=== PATIENT | female | born 1940 | race Caucasian/White ===

== ENCOUNTER 2018-02-20 19:46 | Emergency (ER) | payer OTHER ==
[2018-02-20] MEDS: NAPROXEN 500 MG TAB PO (22:57)
== END 2018-02-21 00:05 | disposition home or self-care (01) ==
LOC: FTE 02-21 00:05
DX: M25.461 Effusion, right knee (principal); Z79.82 Long term (current) use of aspirin
CPT/HCPCS: 73562; 93971; 99283-25

== ENCOUNTER 2018-06-13 14:53 | Inpatient (IN) | payer OTHER ==
[2018-06-13 16:04] LABS: ADD MAN DIFF? NO
[2018-06-13 16:05] LABS: WHITE BLOOD COUNT 18.7 10^3/ul (4.8-10.8)
[2018-06-13 16:05] LABS: BASOPHIL # 0.1 10^3/ul (0.0-0.1); BASOPHILS % 0.3 % (0.0-2.0); EOSINOPHILS % 0.1 % (0.0-7.0); HEMATOCRIT 44.8 % (37.0-47.0); HEMOGLOBIN 15.2 g/dl (12.0-16.0); LYMPHOCYTES # 1.7 10^3/ul (0.8-2.9); LYMPHOCYTES % 8.9 % (15.0-51.0); MEAN CORPUSCULAR HEMOGLOBIN 32.3 pg (29.0-33.0); MEAN CORPUSCULAR HGB CONC 33.9 g/dl (32.0-37.0); MEAN CORPUSCULAR VOLUME 95.3 fl (82.0-101.0); MEAN PLATELET VOLUME 12.5 fl (7.4-10.4); MONOCYTE # 1.4 10^3/ul (0.3-0.9); MONOCYTES % 7.7 % (0.0-11.0); NEUTROPHIL # 15.4 10^3/ul (1.6-7.5); NEUTROPHILS % 82.4 % (39.0-77.0); PLATELET COUNT 199 10^3/UL (140-415); RED CELL DISTRIBUTION WIDTH 13.4 % (11.5-14.5)
[2018-06-13 16:10] LABS: ADD UMIC YES; UR ASCORBIC ACID NEGATIVE (NEGATIVE); UR BILIRUBIN (Dip) NEGATIVE (NEGATIVE); UR BLOOD (Dip) 1+ mg/dL (NEGATIVE); UR CLARITY CLEAR (CLEAR); UR COLOR YELLOW (YELLOW); UR GLUCOSE (Dip) NEGATIVE (NEGATIVE); UR KETONES (Dip) NEGATIVE (NEGATIVE); UR LEUKOCYTE ESTERASE (Dip) NEGATIVE Leu/ul (NEGATIVE); UR NITRITE (Dip) NEGATIVE (NEGATIVE); UR RBC 1 /HPF (0-5); UR SPECIFIC GRAVITY (Dip) 1.008 (1.003-1.030); UR TOTAL PROTEIN (Dip) NEGATIVE (NEGATIVE); UR UROBILINOGEN (Dip) NEGATIVE (NEGATIVE); UR WBC 2 /HPF (0-5)
[2018-06-13 16:30] LABS: ALANINE AMINOTRANSFERASE 18 IU/L (13-69); ALBUMIN 4.2 g/dl (3.3-4.9); ALKALINE PHOSPHATASE 93 IU/L (42-121); ANION GAP 12 (5-13); ASPARTATE AMINO TRANSFERASE 29 IU/L (15-46); BILIRUBIN,INDIRECT 0.7 mg/dl (0-1.1); BILIRUBIN,TOTAL 0.7 mg/dl (0.2-1.3); BLOOD UREA NITROGEN 13 mg/dl (7-20); CALCIUM 9.6 mg/dl (8.4-10.2); CARBON DIOXIDE 24 mmol/L (21-31); CHLORIDE 102 mmol/L (97-110); CREATININE 0.62 mg/dl (0.44-1.00); GLUCOSE 122 mg/dl (70-220); LIPASE 23 U/L (23-300); POTASSIUM 4.1 mmol/L (3.5-5.1); SODIUM 138 mmol/L (135-144); TOTAL PROTEIN 8.4 g/dl (6.1-8.1)
[2018-06-13] MEDS: SOD CHLORIDE 0.9% 100 ML (18:25)
[2018-06-13] MEDS: IOHEXOL 300MG/ML 150 ML BTL (18:25)
[2018-06-13] MEDS ORDERED: ONDANSETRON 4 MG INJ IV (19:30)
[2018-06-13] MEDS ORDERED: PIPER-TAZO 3.375 GM IV (PMX) 100 ML IVPB (19:30)
[2018-06-13] MEDS ORDERED: ACETAMINOPHEN 325 MG TAB PO (19:30)
[2018-06-13] MEDS ORDERED: NACL 0.9% 3 ML SYG IV (20:00)
[2018-06-13 20:14] LABS: INR 1.06; PROTIME 13.9 Sec (11.9-14.9); PT RATIO 1.1
[2018-06-13] MEDS: PIPER-TAZO 2.25 GM (PMX) 50 ML IVPB (20:17)
[2018-06-13] MEDS: DEXTROSE 5%-0.45% NACL 1,000 ML IV (20:20)
[2018-06-13] MEDS: morphine 2 MG INJ IV (22:03)
[2018-06-14] MEDS: ONDANSETRON 4 MG INJ IV (01:43)
[2018-06-14] MEDS: PIPER-TAZO 2.25 GM (PMX) 50 ML IVPB ×2 (01:43→05:55)
[2018-06-14] MEDS: SOD CHLORIDE 0.9% 1,000 ML IV ×6 (02:04→17:02)
[2018-06-14 03:02] LABS: LACTIC ACID 4.6 mmol/L (0.5-2.0)
[2018-06-14] MEDS: PANTOPRAZOLE 40 MG INJ IV (05:55)
[2018-06-14 06:18] LABS: WHITE BLOOD COUNT 20.4 10^3/ul (4.8-10.8)
[2018-06-14 06:18] LABS: ABNORMAL IP MESSAGE 1; HEMATOCRIT 41.1 % (37.0-47.0); HEMOGLOBIN 13.5 g/dl (12.0-16.0); MEAN CORPUSCULAR HEMOGLOBIN 32.6 pg (29.0-33.0); MEAN CORPUSCULAR HGB CONC 32.8 g/dl (32.0-37.0); MEAN CORPUSCULAR VOLUME 99.3 fl (82.0-101.0); MEAN PLATELET VOLUME 13.3 fl (7.4-10.4); PLATELET COUNT 135 10^3/UL (140-415); RED BLOOD COUNT 4.14 10^6/ul (4.20-5.40); RED CELL DISTRIBUTION WIDTH 13.9 % (11.5-14.5)
[2018-06-14 06:33] LABS: ADD MAN DIFF? YES; POSITIVE DIFF @See below
[2018-06-14 06:35] LABS: HEMOGLOBIN A1C 5.8 % (0-5.9)
[2018-06-14 06:38] LABS: ALANINE AMINOTRANSFERASE 62 IU/L (13-69); ALBUMIN 3.1 g/dl (3.3-4.9); ALBUMIN/GLOBULIN RATIO 0.88; ALKALINE PHOSPHATASE 214 IU/L (42-121); ANION GAP 12 (5-13); ASPARTATE AMINO TRANSFERASE 130 IU/L (15-46); BILIRUBIN,INDIRECT 0.9 mg/dl (0-1.1); BILIRUBIN,TOTAL 2.6 mg/dl (0.2-1.3); BLOOD UREA NITROGEN 15 mg/dl (7-20); CALCIUM 8.4 mg/dl (8.4-10.2); CARBON DIOXIDE 19 mmol/L (21-31); CHLORIDE 108 mmol/L (97-110); CHOL/HDL RATIO 4.2 RATIO; CHOLESTEROL 116 mg/dl (100-200); CREATININE 1.27 mg/dl (0.44-1.00); GLUCOSE 89 mg/dl (70-220); HDL CHOLESTEROL 27 mg/dl (33-92); LDL CHOLESTEROL,CALCULATED 67 mg/dl; MAGNESIUM 1.7 mg/dl (1.7-2.5); POTASSIUM 3.6 mmol/L (3.5-5.1); SODIUM 139 mmol/L (135-144); TOTAL PROTEIN 6.6 g/dl (6.1-8.1); TRIGLYCERIDES 110 mg/dl (0-149)
[2018-06-14] MEDS: NORepinephrine 8MG/250 ML (PMX 250 ML IV (07:02)
[2018-06-14 09:50] LABS: ANISOCYTOSIS 1+ (0-0); BAND NEUTROPHILS #M 6.3 10^3/ul (0.0-0.6); BAND NEUTROPHILS % (M) 31 % (0-4); GIANT THROMBO% (M) 7 % (0-0); LYMPHOCYTES #M 0.4 10^3/ul (0.8-2.9); LYMPHOCYTES % (M) 2 % (15-51); MONOCYTE #M 0.6 10^3/ul (0.3-0.9); MONOCYTES % (M) 3 % (0-11); PLATELET ESTIMATE DECREASED; POIKILOCYTOSIS 1+ (0-0); POLYCHROMASIA 1+ (0-0); SEG NEUT #M 14.3 10^3/ul (1.6-7.5); SEGMENTED NEUTROPHILS (M) % 64 % (39-77); SMUDGE%M 3 % (0-0)
[2018-06-14] MEDS: LIDOCAINE 1% (MPF) 5 ML VIAL SC (10:05)
[2018-06-14] MEDS: PIPER-TAZO 3.375 GM IV (PMX) 100 ML IVPB ×2 (13:16→21:40)
[2018-06-14] MEDS: LIDOCAINE 2% (SDV) 5 ML INJ (15:00)
[2018-06-14] MEDS: FENTAnyl 50 MCG/ML VIAL (15:00)
[2018-06-14] MEDS: ONDANSETRON 4 MG INJ (15:30)
[2018-06-15] MEDS: SOD CHLORIDE 0.9% 1,000 ML IV ×3 (01:46→10:07)
[2018-06-15] MEDS: PIPER-TAZO 3.375 GM IV (PMX) 100 ML IVPB (05:41)
[2018-06-15 05:52] LABS: WHITE BLOOD COUNT 28.5 10^3/ul (4.8-10.8)
[2018-06-15 05:52] LABS: ABNORMAL IP MESSAGE 1; HEMATOCRIT 38.9 % (37.0-47.0); HEMOGLOBIN 12.4 g/dl (12.0-16.0); MEAN CORPUSCULAR HEMOGLOBIN 32.2 pg (29.0-33.0); MEAN CORPUSCULAR HGB CONC 31.9 g/dl (32.0-37.0); MEAN PLATELET VOLUME 13.9 fl (7.4-10.4); PLATELET COUNT 134 10^3/UL (140-415); RED BLOOD COUNT 3.85 10^6/ul (4.20-5.40); RED CELL DISTRIBUTION WIDTH 14.8 % (11.5-14.5)
[2018-06-15 05:56] LABS: LACTIC ACID 1.4 mmol/L (0.5-2.0)
[2018-06-15 05:57] LABS: ADD MAN DIFF? YES; POSITIVE DIFF @See below
[2018-06-15] MEDS: NORepinephrine 8MG/250 ML (PMX 250 ML IV (05:57)
[2018-06-15 06:25] LABS: PHOSPHORUS 2.9 mg/dl (2.5-4.9)
[2018-06-15 06:25] LABS: MAGNESIUM 1.9 mg/dl (1.7-2.5)
[2018-06-15] MEDS: SOD CHLORIDE 0.9% 500 ML IV (06:34)
[2018-06-15 06:38] LABS: ALANINE AMINOTRANSFERASE 81 IU/L (13-69); ALBUMIN 2.7 g/dl (3.3-4.9); ALBUMIN/GLOBULIN RATIO 0.93; ALKALINE PHOSPHATASE 155 IU/L (42-121); ANION GAP 9 (5-13); ASPARTATE AMINO TRANSFERASE 95 IU/L (15-46); BILIRUBIN,INDIRECT 0.2 mg/dl (0-1.1); BILIRUBIN,TOTAL 0.4 mg/dl (0.2-1.3); BLOOD UREA NITROGEN 22 mg/dl (7-20); CALCIUM 7.4 mg/dl (8.4-10.2); CARBON DIOXIDE 18 mmol/L (21-31); CHLORIDE 113 mmol/L (97-110); CREATININE 0.98 mg/dl (0.44-1.00); GLUCOSE 87 mg/dl (70-220); POTASSIUM 4.1 mmol/L (3.5-5.1); SODIUM 140 mmol/L (135-144); TOTAL PROTEIN 5.6 g/dl (6.1-8.1)
[2018-06-15 07:28] LABS: ANISOCYTOSIS 1+ (0-0); BAND NEUTROPHILS #M 9.4 10^3/ul (0.0-0.6); BAND NEUTROPHILS % (M) 33 % (0-4); BASOPHIL #M 0.2 10^3/ul (0.0-0.0); BASOPHILS % (M) 1 % (0-2); EOSINOPHILS % (M) 1 % (0-7); MONOCYTE #M 0.5 10^3/ul (0.3-0.9); MONOCYTES % (M) 2 % (0-11); PLATELET ESTIMATE DECREASED; POLYCHROMASIA 1+ (0-0); SEG NEUT #M 20.6 10^3/ul (1.6-7.5); SEGMENTED NEUTROPHILS (M) % 63 % (39-77); SMUDGE%M 2 % (0-0)
[2018-06-15] MEDS: ONDANSETRON 4 MG INJ IV ×2 (09:48→18:06)
[2018-06-15] MEDS ORDERED: VANCOMYCIN IV PER PHARMACY XX (10:00)
[2018-06-15] MEDS: MEROPENEM 1 GM/50ML(PMX) 50 ML IVPB ×2 (10:03→21:43)
[2018-06-15] MEDS: VANCOMYCIN HCL 1.5 GM in SOD CHLORIDE 0.9% 250 ML IVPB (11:01)
[2018-06-15 11:13] LABS: LACTIC ACID 1.1 mmol/L (0.5-2.0)
[2018-06-15] MEDS: METOPROLOL (XL) 25 MG TAB PO (18:44)
[2018-06-16] MEDS: SOD CHLORIDE 0.9% 1,000 ML IV (04:21)
[2018-06-16 05:04] LABS: ADD MAN DIFF? NO
[2018-06-16 05:17] LABS: ABNORMAL IP MESSAGE 1; BASOPHIL # 0.1 10^3/ul (0.0-0.1); BASOPHILS % 0.3 % (0.0-2.0); EOSINOPHILS # 0.2 10^3/ul (0.0-0.5); EOSINOPHILS % 1.2 % (0.0-7.0); HEMATOCRIT 38.1 % (37.0-47.0); HEMOGLOBIN 12.4 g/dl (12.0-16.0); LYMPHOCYTES # 1.6 10^3/ul (0.8-2.9); LYMPHOCYTES % 8.2 % (15.0-51.0); MEAN CORPUSCULAR HEMOGLOBIN 32.6 pg (29.0-33.0); MEAN CORPUSCULAR HGB CONC 32.5 g/dl (32.0-37.0); MEAN CORPUSCULAR VOLUME 100.3 fl (82.0-101.0); MEAN PLATELET VOLUME 13.7 fl (7.4-10.4); MONOCYTE # 0.9 10^3/ul (0.3-0.9); MONOCYTES % 4.5 % (0.0-11.0); NEUTROPHIL # 16.4 10^3/ul (1.6-7.5); NEUTROPHILS % 85.4 % (39.0-77.0); PLATELET COUNT 120 10^3/UL (140-415)
[2018-06-16 05:17] LABS: WHITE BLOOD COUNT 19.2 10^3/ul (4.8-10.8)
[2018-06-16 05:21] LABS: POSITIVE DIFF @See below
[2018-06-16 05:44] LABS: LACTIC ACID 1.3 mmol/L (0.5-2.0)
[2018-06-16 05:51] LABS: ANION GAP 10 (5-13); BLOOD UREA NITROGEN 18 mg/dl (7-20); CALCIUM 8.4 mg/dl (8.4-10.2); CARBON DIOXIDE 23 mmol/L (21-31); CHLORIDE 109 mmol/L (97-110); GLUCOSE 85 mg/dl (70-220); MAGNESIUM 2.2 mg/dl (1.7-2.5); PHOSPHORUS 2.1 mg/dl (2.5-4.9); POTASSIUM 3.9 mmol/L (3.5-5.1); SODIUM 142 mmol/L (135-144)
[2018-06-16] MEDS: MEROPENEM 1 GM/50ML(PMX) 50 ML IVPB ×2 (08:24→20:20)
[2018-06-16] MEDS: NEUTRA-PHOS 250 MG PACKET PO (08:24)
[2018-06-16] MEDS ORDERED: VANCOMYCIN HCL 1.25 GM in SOD CHLORIDE 0.9% 250 ML IVPB (11:00)
[2018-06-16] MEDS: ONDANSETRON 4 MG INJ IV (14:15)
[2018-06-16 23:03] LABS: ADD UMIC YES; UR ASCORBIC ACID NEGATIVE (NEGATIVE); UR BILIRUBIN (Dip) NEGATIVE (NEGATIVE); UR BLOOD (Dip) 1+ mg/dL (NEGATIVE); UR CLARITY CLEAR (CLEAR); UR COLOR YELLOW (YELLOW); UR GLUCOSE (Dip) NEGATIVE (NEGATIVE); UR KETONES (Dip) NEGATIVE (NEGATIVE); UR LEUKOCYTE ESTERASE (Dip) NEGATIVE Leu/ul (NEGATIVE); UR MUCUS FEW /HPF (NONE SEEN); UR NITRITE (Dip) NEGATIVE (NEGATIVE); UR RBC 4 /HPF (0-5); UR SPECIFIC GRAVITY (Dip) 1.013 (1.003-1.030); UR TOTAL PROTEIN (Dip) NEGATIVE (NEGATIVE); UR UROBILINOGEN (Dip) 1+ mg/dL (NEGATIVE); UR WBC 1 /HPF (0-5)
[2018-06-16 23:28] LABS: CREATININE,URINE RANDOM 36.53 mg/dl (20-320)
[2018-06-16 23:28] LABS: SODIUM,URINE RANDOM 155 mmol/L (30-90)
[2018-06-17] MEDS: ACETAMINOPHEN 325 MG TAB PO (06:29)
[2018-06-17] MEDS: ONDANSETRON 4 MG INJ IV (06:29)
[2018-06-17 06:50] LABS: ADD MAN DIFF? NO
[2018-06-17 06:56] LABS: ABNORMAL IP MESSAGE 1; BASOPHILS % 0.2 % (0.0-2.0); EOSINOPHILS # 0.3 10^3/ul (0.0-0.5); HEMATOCRIT 39.7 % (37.0-47.0); HEMOGLOBIN 13.2 g/dl (12.0-16.0); LYMPHOCYTES # 2.5 10^3/ul (0.8-2.9); LYMPHOCYTES % 19.4 % (15.0-51.0); MEAN CORPUSCULAR HEMOGLOBIN 32.3 pg (29.0-33.0); MEAN CORPUSCULAR HGB CONC 33.2 g/dl (32.0-37.0); MEAN CORPUSCULAR VOLUME 97.1 fl (82.0-101.0); MEAN PLATELET VOLUME 13.1 fl (7.4-10.4); MONOCYTES % 7.9 % (0.0-11.0); NEUTROPHIL # 8.9 10^3/ul (1.6-7.5); NEUTROPHILS % 69.8 % (39.0-77.0); PLATELET COUNT 116 10^3/UL (140-415); RED BLOOD COUNT 4.09 10^6/ul (4.20-5.40); RED CELL DISTRIBUTION WIDTH 14.2 % (11.5-14.5)
[2018-06-17 06:56] LABS: WHITE BLOOD COUNT 12.8 10^3/ul (4.8-10.8)
[2018-06-17 07:07] LABS: POSITIVE DIFF @See below
[2018-06-17 07:28] LABS: ANION GAP 9 (5-13); BLOOD UREA NITROGEN 11 mg/dl (7-20); CALCIUM 8.8 mg/dl (8.4-10.2); CARBON DIOXIDE 29 mmol/L (21-31); CHLORIDE 103 mmol/L (97-110); CREATININE 0.64 mg/dl (0.44-1.00); GLUCOSE 93 mg/dl (70-220); MAGNESIUM 1.7 mg/dl (1.7-2.5); PHOSPHORUS 2.1 mg/dl (2.5-4.9); POTASSIUM 3.6 mmol/L (3.5-5.1); SODIUM 141 mmol/L (135-144)
[2018-06-17] MEDS: MEROPENEM 1 GM/50ML(PMX) 50 ML IVPB ×2 (08:36→20:29)
[2018-06-17] MEDS: hydrALAzine 20 MG INJ IV (21:13)
[2018-06-18] MEDS: MEROPENEM 1 GM/50ML(PMX) 50 ML IVPB (08:50)
[2018-06-18] MEDS: CEFTRIAXONE 2 GM/50 ML (PMX) 50 ML IVPB (13:33)
[2018-06-18 15:21] LABS: CREATININE, RANDOM URINE 42 mg/dL (20-275); MICROALBUMIN/CREATININE RATIO 24 (<30)
[2018-06-19 05:44] LABS: ADD MAN DIFF? NO
[2018-06-19 06:00] LABS: WHITE BLOOD COUNT 11.4 10^3/ul (4.8-10.8)
[2018-06-19 06:00] LABS: BASOPHILS % 0.4 % (0.0-2.0); EOSINOPHILS # 0.2 10^3/ul (0.0-0.5); EOSINOPHILS % 1.6 % (0.0-7.0); HEMATOCRIT 40.1 % (37.0-47.0); HEMOGLOBIN 13.6 g/dl (12.0-16.0); LYMPHOCYTES # 3.2 10^3/ul (0.8-2.9); LYMPHOCYTES % 28.2 % (15.0-51.0); MEAN CORPUSCULAR HEMOGLOBIN 32.5 pg (29.0-33.0); MEAN CORPUSCULAR HGB CONC 33.9 g/dl (32.0-37.0); MEAN CORPUSCULAR VOLUME 95.7 fl (82.0-101.0); MEAN PLATELET VOLUME 12.9 fl (7.4-10.4); MONOCYTE # 1.1 10^3/ul (0.3-0.9); NEUTROPHIL # 6.7 10^3/ul (1.6-7.5); NEUTROPHILS % 58.7 % (39.0-77.0); PLATELET COUNT 164 10^3/UL (140-415); RED BLOOD COUNT 4.19 10^6/ul (4.20-5.40); RED CELL DISTRIBUTION WIDTH 13.5 % (11.5-14.5)
[2018-06-19 06:35] LABS: MAGNESIUM 1.6 mg/dl (1.7-2.5)
[2018-06-19 06:35] LABS: PHOSPHORUS 3.5 mg/dl (2.5-4.9)
[2018-06-19 06:41] LABS: ALANINE AMINOTRANSFERASE 70 IU/L (13-69); ALBUMIN 3.1 g/dl (3.3-4.9); ALKALINE PHOSPHATASE 145 IU/L (42-121); ANION GAP 5 (5-13); ASPARTATE AMINO TRANSFERASE 66 IU/L (15-46); BILIRUBIN,INDIRECT 0.3 mg/dl (0-1.1); BILIRUBIN,TOTAL 0.3 mg/dl (0.2-1.3); BLOOD UREA NITROGEN 11 mg/dl (7-20); CALCIUM 9.2 mg/dl (8.4-10.2); CARBON DIOXIDE 35 mmol/L (21-31); CHLORIDE 101 mmol/L (97-110); CREATININE 0.52 mg/dl (0.44-1.00); GLUCOSE 103 mg/dl (70-220); POTASSIUM 3.4 mmol/L (3.5-5.1); SODIUM 141 mmol/L (135-144); TOTAL PROTEIN 6.2 g/dl (6.1-8.1)
[2018-06-19] MEDS: POTASSIUM CHLORIDE (SR) 20 MEQ TAB PO (08:55)
[2018-06-19] MEDS: MAGNESIUM SULFATE 2 GM/50 ML 50 ML IVPB (09:16)
[2018-06-19] MEDS: CEFTRIAXONE 2 GM/50 ML (PMX) 50 ML IVPB (14:15)
== END 2018-06-19 18:55 | disposition home health service (06) | DRG 871 ==
LOC: TEL 06-16 13:45 → E/R 14:53 → ICU 06-14 05:51 → TEL 06-17 13:56 → ICU 21:18 → 2NE 06-18 23:33
PROC: 0F9430Z Drainage of Gallbladder with Drainage Device, Percutaneous Approach (ICD-10-PCS; principal; 2018-06-14)
PROC: 02H633Z Insertion of Infusion Device into Right Atrium, Percutaneous Approach (ICD-10-PCS; 2018-06-14)
PROC: B54NZZA Ultrasonography of Left Upper Extremity Veins, Guidance (ICD-10-PCS; 2018-06-14)
DX: A41.59 Other Gram-negative sepsis (principal); R65.21 Severe sepsis with septic shock; N17.0 Acute kidney failure with tubular necrosis; E87.2 Acidosis; K80.00 Calculus of gallbladder with acute cholecystitis without obstruction; K83.09 Other cholangitis; I50.30 Unspecified diastolic (congestive) heart failure; I48.0 Paroxysmal atrial fibrillation; R51 Headache; E78.5 Hyperlipidemia, unspecified; E87.6 Hypokalemia; E83.42 Hypomagnesemia; E66.9 Obesity, unspecified; R93.89 Abnormal findings on diagnostic imaging of other specified body structures; I11.0 Hypertensive heart disease with heart failure; K21.9 Gastro-esophageal reflux disease without esophagitis; Z79.82 Long term (current) use of aspirin
CPT/HCPCS: 36415; 36569; 71045; 74177; 75989; 76705; 76937; 80048; 80053; 80061; 81001; 81003; 82043; 83036; 83605; 83690; 83735; 84100; 84155; 84300; 85025; 85610; 87040; 87070; 87075; 87081; 93005; 93306; 97116; 97161; 97530; 99285-25

== ENCOUNTER 2018-06-28 09:39 | Emergency (ER) | payer OTHER | END 2018-06-28 11:15 | disposition home or self-care (01) | LOC: E/R 09:39 | DX: K94.03 Colostomy malfunction (principal); I10 Essential (primary) hypertension; Z79.82 Long term (current) use of aspirin | CPT/HCPCS: 99282 ==

== ENCOUNTER 2018-08-02 05:47 | Inpatient (IN) | payer OTHER ==
[2018-08-02] MEDS: SOD CHLORIDE 0.9% 1,000 ML IV ×3 (06:00→20:18)
[2018-08-02] MEDS ORDERED: ROCURONIUM 50 MG INJ (08:30)
[2018-08-02] MEDS ORDERED: LABETALOL HCL 20MG INJ IV (08:30)
[2018-08-02] MEDS ORDERED: LIDOCAINE 1% (MDV) 20 ML INJ (08:30)
[2018-08-02] MEDS ORDERED: PROPOFOL 20 ML (08:30)
[2018-08-02] MEDS ORDERED: hydrALAzine 20 MG INJ IV (08:30)
[2018-08-02] MEDS ORDERED: HYDROmorphONE 1 MG/5 ML IV SYRINGE IV (08:30)
[2018-08-02] MEDS ORDERED: SUCCINYLCHOLINE CHLORIDE 100 MG/5 ML SYG IV (08:30)
[2018-08-02] MEDS ORDERED: FENTAnyl 50 MCG/ML VIAL IV (08:30)
[2018-08-02] MEDS ORDERED: ROPIVACAINE 0.5 % 30 ML VIAL (08:46)
[2018-08-02] MEDS ORDERED: PHENYLephrine (100 MCG/ML) 10ML SYG (08:47)
[2018-08-02] MEDS: CEFAZOLIN 2 GM/50 ML (PMX) 50 ML IVPB (09:00)
[2018-08-02] MEDS ORDERED: CEFAZOLIN 1 GM INJ (09:02)
[2018-08-02] MEDS ORDERED: ONDANSETRON 4 MG INJ (09:04)
[2018-08-02] MEDS ORDERED: EPHEDrine 25 MG/5 ML SYG (09:19)
[2018-08-02] MEDS ORDERED: ESMOLOL 10 ML (10:14)
[2018-08-02] MEDS ORDERED: HYDROCODONE/APAP (5/325) TAB PO (10:30)
[2018-08-02 11:05] LABS: HEMATOCRIT 33.4 % (37.0-47.0)
[2018-08-02] MEDS: FENTAnyl 50 MCG/ML VIAL IV (11:11)
[2018-08-02] MEDS: HYDROmorphONE 1 MG/5 ML IV SYRINGE IV (11:12)
[2018-08-02] MEDS: ONDANSETRON 4 MG INJ IV ×2 (11:18→22:11)
[2018-08-02] MEDS: METOCLOPRAMIDE 10 MG INJ IV (11:21)
[2018-08-02 11:54] LABS: ADD MAN DIFF? NO
[2018-08-02 11:56] LABS: WHITE BLOOD COUNT 16.2 10^3/ul (4.8-10.8)
[2018-08-02 11:56] LABS: BASOPHIL # 0.1 10^3/ul (0.0-0.1); BASOPHILS % 0.3 % (0.0-2.0); EOSINOPHILS # 0.1 10^3/ul (0.0-0.5); EOSINOPHILS % 0.3 % (0.0-7.0); HEMATOCRIT 33.4 % (37.0-47.0); LYMPHOCYTES # 2.3 10^3/ul (0.8-2.9); LYMPHOCYTES % 14.2 % (15.0-51.0); MEAN CORPUSCULAR HGB CONC 32.9 g/dl (32.0-37.0); MEAN CORPUSCULAR VOLUME 97.1 fl (82.0-101.0); MONOCYTE # 0.6 10^3/ul (0.3-0.9); MONOCYTES % 3.5 % (0.0-11.0); NEUTROPHIL # 13.1 10^3/ul (1.6-7.5); NEUTROPHILS % 80.8 % (39.0-77.0); PLATELET COUNT 205 10^3/UL (140-415); RED BLOOD COUNT 3.44 10^6/ul (4.20-5.40)
[2018-08-02 12:06] LABS: ALANINE AMINOTRANSFERASE 130 IU/L (13-69); ALBUMIN/GLOBULIN RATIO 1.03; ALKALINE PHOSPHATASE 65 IU/L (42-121); ANION GAP 7 (5-13); BILIRUBIN,INDIRECT 0.2 mg/dl (0-1.1); BILIRUBIN,TOTAL 0.2 mg/dl (0.2-1.3); BLOOD UREA NITROGEN 10 mg/dl (7-20); CARBON DIOXIDE 22 mmol/L (21-31); CHLORIDE 112 mmol/L (97-110); CREATININE 0.51 mg/dl (0.44-1.00); GLUCOSE 176 mg/dl (70-220); TOTAL PROTEIN 5.9 g/dl (6.1-8.1)
[2018-08-02 12:28] LABS: HOLD TRANSMISSIONS 1
[2018-08-02 12:30] LABS: ASPARTATE AMINO TRANSFERASE 175 IU/L (15-46); CALCIUM 8.2 mg/dl (8.4-10.2); POTASSIUM 3.4 mmol/L (3.5-5.1); SODIUM 141 mmol/L (135-144)
[2018-08-02] MEDS: DIPHENHYDRAMINE 50 MG INJ IV (12:54)
[2018-08-02] MEDS: FAMOTIDINE 20 MG INJ IV (12:55)
[2018-08-02] MEDS: AMPICILLIN/SULB 3 GM/NS (PMX) 100 ML IVPB ×3 (13:03→23:36)
[2018-08-02] MEDS ORDERED: ALBUTEROL 0.083% (NEB) 2.5 MG/3 ML AMP HHN (15:00)
[2018-08-02] MEDS ORDERED: ACETAMINOPHEN 325 MG TAB PO (15:30)
[2018-08-02] MEDS ORDERED: NACL 0.9% 3 ML SYG IV (15:30)
[2018-08-02] MEDS: PROMETHAZINE 12.5 MG SUPP PR (15:30)
[2018-08-02] MEDS: MIDAZOLAM 1 MG/ML 2 ML INJ IV (15:45)
[2018-08-02] MEDS: POTASSIUM CHLORIDE 100 ML IVPB ×2 (17:29→20:15)
[2018-08-02] MEDS: morphine 2 MG INJ IV ×2 (18:34→21:53)
[2018-08-03] MEDS: SOD CHLORIDE 0.9% 1,000 ML IV ×3 (04:38→23:47)
[2018-08-03] MEDS: AMPICILLIN/SULB 3 GM/NS (PMX) 100 ML IVPB ×4 (05:38→23:47)
[2018-08-03 06:46] LABS: ADD MAN DIFF? NO
[2018-08-03 06:55] LABS: WHITE BLOOD COUNT 14.3 10^3/ul (4.8-10.8)
[2018-08-03 06:55] LABS: BASOPHILS % 0.2 % (0.0-2.0); HEMATOCRIT 29.2 % (37.0-47.0); HEMOGLOBIN 9.5 g/dl (12.0-16.0); LYMPHOCYTES # 1.3 10^3/ul (0.8-2.9); MEAN CORPUSCULAR HEMOGLOBIN 32.1 pg (29.0-33.0); MEAN CORPUSCULAR HGB CONC 32.5 g/dl (32.0-37.0); MEAN CORPUSCULAR VOLUME 98.6 fl (82.0-101.0); MEAN PLATELET VOLUME 12.1 fl (7.4-10.4); MONOCYTE # 1.1 10^3/ul (0.3-0.9); MONOCYTES % 7.7 % (0.0-11.0); NEUTROPHIL # 11.8 10^3/ul (1.6-7.5); NEUTROPHILS % 82.5 % (39.0-77.0); PLATELET COUNT 159 10^3/UL (140-415); RED BLOOD COUNT 2.96 10^6/ul (4.20-5.40); RED CELL DISTRIBUTION WIDTH 14.4 % (11.5-14.5)
[2018-08-03 07:05] LABS: MAGNESIUM 1.4 mg/dl (1.7-2.5)
[2018-08-03 07:14] LABS: ALANINE AMINOTRANSFERASE 100 IU/L (13-69); ALKALINE PHOSPHATASE 50 IU/L (42-121); ANION GAP 5 (5-13); ASPARTATE AMINO TRANSFERASE 122 IU/L (15-46); BILIRUBIN,INDIRECT 0.6 mg/dl (0-1.1); BILIRUBIN,TOTAL 0.6 mg/dl (0.2-1.3); BLOOD UREA NITROGEN 9 mg/dl (7-20); CALCIUM 7.8 mg/dl (8.4-10.2); CARBON DIOXIDE 26 mmol/L (21-31); CHLORIDE 111 mmol/L (97-110); CREATININE 0.56 mg/dl (0.44-1.00); GLUCOSE 135 mg/dl (70-220); POTASSIUM 4.2 mmol/L (3.5-5.1); SODIUM 142 mmol/L (135-144)
[2018-08-03] MEDS: FAMOTIDINE 20 MG TAB PO (09:21)
[2018-08-03] MEDS: MAGNESIUM SULFATE 2 GM/50 ML 50 ML IVPB (09:26)
[2018-08-03] MEDS ORDERED: CALCIUM CARBONATE 500 MG CHEW TAB PO (12:00)
[2018-08-03] MEDS: DOCUSATE SODIUM 100 MG CAP PO (12:17)
[2018-08-04] MEDS: AMPICILLIN/SULB 3 GM/NS (PMX) 100 ML IVPB ×2 (05:13→12:23)
[2018-08-04 06:24] LABS: ADD MAN DIFF? NO
[2018-08-04 06:28] LABS: WHITE BLOOD COUNT 15.3 10^3/ul (4.8-10.8)
[2018-08-04 06:28] LABS: BASOPHILS % 0.3 % (0.0-2.0); EOSINOPHILS % 0.1 % (0.0-7.0); HEMATOCRIT 26.3 % (37.0-47.0); HEMOGLOBIN 8.7 g/dl (12.0-16.0); LYMPHOCYTES # 1.7 10^3/ul (0.8-2.9); LYMPHOCYTES % 10.8 % (15.0-51.0); MEAN CORPUSCULAR HEMOGLOBIN 32.5 pg (29.0-33.0); MEAN CORPUSCULAR HGB CONC 33.1 g/dl (32.0-37.0); MEAN CORPUSCULAR VOLUME 98.1 fl (82.0-101.0); MEAN PLATELET VOLUME 12.2 fl (7.4-10.4); MONOCYTE # 1.2 10^3/ul (0.3-0.9); MONOCYTES % 7.8 % (0.0-11.0); NEUTROPHIL # 12.3 10^3/ul (1.6-7.5); NEUTROPHILS % 80.4 % (39.0-77.0); PLATELET COUNT 138 10^3/UL (140-415); RED BLOOD COUNT 2.68 10^6/ul (4.20-5.40); RED CELL DISTRIBUTION WIDTH 14.1 % (11.5-14.5)
[2018-08-04 07:16] LABS: ALANINE AMINOTRANSFERASE 75 IU/L (13-69); ALBUMIN 2.6 g/dl (3.3-4.9); ALBUMIN/GLOBULIN RATIO 0.92; ALKALINE PHOSPHATASE 45 IU/L (42-121); ANION GAP 3 (5-13); ASPARTATE AMINO TRANSFERASE 61 IU/L (15-46); BILIRUBIN,INDIRECT 0.7 mg/dl (0-1.1); BILIRUBIN,TOTAL 0.7 mg/dl (0.2-1.3); BLOOD UREA NITROGEN 6 mg/dl (7-20); CALCIUM 7.9 mg/dl (8.4-10.2); CARBON DIOXIDE 27 mmol/L (21-31); CHLORIDE 108 mmol/L (97-110); CREATININE 0.47 mg/dl (0.44-1.00); GLUCOSE 120 mg/dl (70-220); POTASSIUM 3.3 mmol/L (3.5-5.1); SODIUM 138 mmol/L (135-144); TOTAL PROTEIN 5.4 g/dl (6.1-8.1)
[2018-08-04] MEDS: FAMOTIDINE 20 MG TAB PO (09:07)
[2018-08-04] MEDS: POTASSIUM CHLORIDE (SR) 20 MEQ TAB PO (09:22)
[2018-08-04] MEDS: metroNIDAZOLE 500 MG/NS (PMX) 100 ML IVPB ×2 (15:30→21:57)
[2018-08-04] MEDS: CIPROFLOXACIN 400MG/D5W 200 ML IVPB (16:40)
[2018-08-05] MEDS: CIPROFLOXACIN 400MG/D5W 200 ML IVPB ×3 (00:55→20:10)
[2018-08-05] MEDS: metroNIDAZOLE 500 MG/NS (PMX) 100 ML IVPB ×3 (05:44→21:27)
[2018-08-05 06:09] LABS: ADD MAN DIFF? NO
[2018-08-05 06:23] LABS: WHITE BLOOD COUNT 13.8 10^3/ul (4.8-10.8)
[2018-08-05 06:23] LABS: BASOPHILS % 0.3 % (0.0-2.0); EOSINOPHILS # 0.1 10^3/ul (0.0-0.5); EOSINOPHILS % 0.8 % (0.0-7.0); HEMATOCRIT 27.2 % (37.0-47.0); HEMOGLOBIN 9.1 g/dl (12.0-16.0); LYMPHOCYTES # 2.2 10^3/ul (0.8-2.9); LYMPHOCYTES % 15.8 % (15.0-51.0); MEAN CORPUSCULAR HEMOGLOBIN 31.9 pg (29.0-33.0); MEAN CORPUSCULAR HGB CONC 33.5 g/dl (32.0-37.0); MEAN CORPUSCULAR VOLUME 95.4 fl (82.0-101.0); MEAN PLATELET VOLUME 12.1 fl (7.4-10.4); MONOCYTES % 7.3 % (0.0-11.0); NEUTROPHIL # 10.4 10^3/ul (1.6-7.5); NEUTROPHILS % 75.4 % (39.0-77.0); PLATELET COUNT 157 10^3/UL (140-415); RED BLOOD COUNT 2.85 10^6/ul (4.20-5.40); RED CELL DISTRIBUTION WIDTH 13.9 % (11.5-14.5)
[2018-08-05 06:52] LABS: ALANINE AMINOTRANSFERASE 53 IU/L (13-69); ALBUMIN/GLOBULIN RATIO 1.03; ALKALINE PHOSPHATASE 51 IU/L (42-121); ANION GAP 5 (5-13); ASPARTATE AMINO TRANSFERASE 41 IU/L (15-46); BILIRUBIN,INDIRECT 0.6 mg/dl (0-1.1); BILIRUBIN,TOTAL 0.6 mg/dl (0.2-1.3); BLOOD UREA NITROGEN 7 mg/dl (7-20); CALCIUM 8.5 mg/dl (8.4-10.2); CARBON DIOXIDE 29 mmol/L (21-31); CHLORIDE 102 mmol/L (97-110); CREATININE 0.52 mg/dl (0.44-1.00); GLUCOSE 103 mg/dl (70-220); POTASSIUM 3.7 mmol/L (3.5-5.1); SODIUM 136 mmol/L (135-144); TOTAL PROTEIN 5.9 g/dl (6.1-8.1)
[2018-08-05] MEDS: FAMOTIDINE 20 MG TAB PO (08:18)
[2018-08-05] MEDS ORDERED: CEFTRIAXONE 1 GM/50 ML (PMX) 50 ML IVPB (14:00)
[2018-08-05] MEDS: DOCUSATE SODIUM 100 MG CAP PO (20:10)
[2018-08-06] MEDS: metroNIDAZOLE 500 MG/NS (PMX) 100 ML IVPB ×3 (05:38→21:55)
[2018-08-06 06:58] LABS: ADD MAN DIFF? NO
[2018-08-06 07:06] LABS: BASOPHILS % 0.3 % (0.0-2.0); EOSINOPHILS # 0.1 10^3/ul (0.0-0.5); HEMATOCRIT 29.3 % (37.0-47.0); HEMOGLOBIN 9.9 g/dl (12.0-16.0); LYMPHOCYTES # 1.9 10^3/ul (0.8-2.9); LYMPHOCYTES % 15.9 % (15.0-51.0); MEAN CORPUSCULAR HEMOGLOBIN 32.2 pg (29.0-33.0); MEAN CORPUSCULAR HGB CONC 33.8 g/dl (32.0-37.0); MEAN CORPUSCULAR VOLUME 95.4 fl (82.0-101.0); MEAN PLATELET VOLUME 11.8 fl (7.4-10.4); MONOCYTE # 0.9 10^3/ul (0.3-0.9); MONOCYTES % 7.2 % (0.0-11.0); NEUTROPHILS % 75.3 % (39.0-77.0); PLATELET COUNT 212 10^3/UL (140-415); RED BLOOD COUNT 3.07 10^6/ul (4.20-5.40); RED CELL DISTRIBUTION WIDTH 13.9 % (11.5-14.5)
[2018-08-06 07:06] LABS: WHITE BLOOD COUNT 11.9 10^3/ul (4.8-10.8)
[2018-08-06 07:31] LABS: MAGNESIUM 1.8 mg/dl (1.7-2.5)
[2018-08-06 07:34] LABS: ALANINE AMINOTRANSFERASE 44 IU/L (13-69); ALBUMIN 3.1 g/dl (3.3-4.9); ALBUMIN/GLOBULIN RATIO 1.06; ALKALINE PHOSPHATASE 70 IU/L (42-121); ANION GAP 7 (5-13); ASPARTATE AMINO TRANSFERASE 27 IU/L (15-46); BILIRUBIN,INDIRECT 0.6 mg/dl (0-1.1); BILIRUBIN,TOTAL 0.6 mg/dl (0.2-1.3); BLOOD UREA NITROGEN 8 mg/dl (7-20); CALCIUM 8.6 mg/dl (8.4-10.2); CARBON DIOXIDE 27 mmol/L (21-31); CHLORIDE 105 mmol/L (97-110); CREATININE 0.55 mg/dl (0.44-1.00); GLUCOSE 123 mg/dl (70-220); POTASSIUM 3.1 mmol/L (3.5-5.1); SODIUM 139 mmol/L (135-144)
[2018-08-06] MEDS: CIPROFLOXACIN 400MG/D5W 200 ML IVPB ×2 (08:50→20:43)
[2018-08-06] MEDS: FAMOTIDINE 20 MG TAB PO (08:50)
[2018-08-06] MEDS: DOCUSATE SODIUM 100 MG CAP PO ×2 (08:57→20:18)
[2018-08-06] MEDS: MAGNESIUM HYDROXIDE 30ML CUP PO (09:05)
[2018-08-06] MEDS: POTASSIUM CHLORIDE (SR) 20 MEQ TAB PO ×2 (11:16→15:00)
[2018-08-06] MEDS: POLYETHYLENE GLYCOL 17 GM PACKET PO (11:32)
[2018-08-06 14:15] LABS: ADD UMIC YES; UR ASCORBIC ACID NEGATIVE (NEGATIVE); UR BILIRUBIN (Dip) NEGATIVE (NEGATIVE); UR BLOOD (Dip) NEGATIVE (NEGATIVE); UR CLARITY CLEAR (CLEAR); UR COLOR YELLOW (YELLOW); UR GLUCOSE (Dip) 2+ mg/dL (NEGATIVE); UR KETONES (Dip) NEGATIVE (NEGATIVE); UR LEUKOCYTE ESTERASE (Dip) TRACE Leu/ul (NEGATIVE); UR NITRITE (Dip) NEGATIVE (NEGATIVE); UR RBC 1 /HPF (0-5); UR SPECIFIC GRAVITY (Dip) 1.011 (1.003-1.030); UR TOTAL PROTEIN (Dip) NEGATIVE (NEGATIVE); UR UROBILINOGEN (Dip) NEGATIVE (NEGATIVE); UR WBC 0 /HPF (0-5)
[2018-08-06] MEDS ORDERED: MINERAL OIL 133 ML ENEMA PR (14:30)
[2018-08-06] MEDS ORDERED: morphine LIQ (10 MG/5 ML) CUP PO (17:30)
[2018-08-07] MEDS: metroNIDAZOLE 500 MG/NS (PMX) 100 ML IVPB (05:06)
[2018-08-07 07:02] LABS: ADD MAN DIFF? NO
[2018-08-07 07:12] LABS: WHITE BLOOD COUNT 11.7 10^3/ul (4.8-10.8)
[2018-08-07 07:12] LABS: BASOPHILS % 0.3 % (0.0-2.0); EOSINOPHILS # 0.1 10^3/ul (0.0-0.5); EOSINOPHILS % 1.2 % (0.0-7.0); HEMATOCRIT 28.5 % (37.0-47.0); HEMOGLOBIN 9.5 g/dl (12.0-16.0); LYMPHOCYTES # 2.4 10^3/ul (0.8-2.9); LYMPHOCYTES % 20.3 % (15.0-51.0); MEAN CORPUSCULAR HGB CONC 33.3 g/dl (32.0-37.0); MEAN PLATELET VOLUME 11.5 fl (7.4-10.4); MONOCYTE # 1.2 10^3/ul (0.3-0.9); MONOCYTES % 9.9 % (0.0-11.0); NEUTROPHIL # 7.9 10^3/ul (1.6-7.5); NEUTROPHILS % 67.8 % (39.0-77.0); PLATELET COUNT 244 10^3/UL (140-415); RED BLOOD COUNT 2.97 10^6/ul (4.20-5.40); RED CELL DISTRIBUTION WIDTH 14.3 % (11.5-14.5)
[2018-08-07 07:27] LABS: ALANINE AMINOTRANSFERASE 41 IU/L (13-69); ALBUMIN 3.2 g/dl (3.3-4.9); ALBUMIN/GLOBULIN RATIO 1.06; ALKALINE PHOSPHATASE 70 IU/L (42-121); ANION GAP 5 (5-13); ASPARTATE AMINO TRANSFERASE 23 IU/L (15-46); BILIRUBIN,INDIRECT 0.6 mg/dl (0-1.1); BILIRUBIN,TOTAL 0.6 mg/dl (0.2-1.3); BLOOD UREA NITROGEN 11 mg/dl (7-20); CALCIUM 8.7 mg/dl (8.4-10.2); CARBON DIOXIDE 26 mmol/L (21-31); CHLORIDE 105 mmol/L (97-110); CREATININE 0.55 mg/dl (0.44-1.00); GLUCOSE 114 mg/dl (70-220); POTASSIUM 3.5 mmol/L (3.5-5.1); SODIUM 136 mmol/L (135-144); TOTAL PROTEIN 6.2 g/dl (6.1-8.1)
[2018-08-07] MEDS: CIPROFLOXACIN 400MG/D5W 200 ML IVPB (08:22)
[2018-08-07] MEDS: FAMOTIDINE 20 MG TAB PO (08:23)
[2018-08-07] MEDS: DOCUSATE SODIUM 100 MG CAP PO (08:23)
[2018-08-07] MEDS: metroNIDAZOLE 500 MG TAB PO (13:44)
[2018-08-07] MEDS ORDERED: metroNIDAZOLE 500 MG TAB NGT (14:00)
[2018-08-07] MEDS ORDERED: CIPROFLOXACIN 500 MG TAB PO (18:00)
== END 2018-08-07 16:15 | disposition home or self-care (01) | DRG 409 ==
LOC: SDS 05:47 → REC 10:18 → TEL 18:12
PROC: 0FT44ZZ Resection of Gallbladder, Percutaneous Endoscopic Approach (ICD-10-PCS; principal; 2018-08-02 08:00)
PROC: 0FP440Z Removal of Drainage Device from Gallbladder, Percutaneous Endoscopic Approach (ICD-10-PCS; 2018-08-02 08:00)
DX: K80.00 Calculus of gallbladder with acute cholecystitis without obstruction (principal); D62 Acute posthemorrhagic anemia; E87.6 Hypokalemia; I10 Essential (primary) hypertension; E78.5 Hyperlipidemia, unspecified; E66.01 Morbid (severe) obesity due to excess calories; Z68.37 Body mass index [BMI] 37.0-37.9, adult; K29.50 Unspecified chronic gastritis without bleeding
CPT/HCPCS: 71045; 74018; 80053; 81001; 83735; 85014; 85018; 85025; 88300; 88304; 97116; 97162; 97167; G0378